=== PATIENT | male | born 1940 | race Hispanic/Latino ===

== ENCOUNTER → 2023-11-10 | Outpatient (CLI) | payer MEDICARE ==
[2023-11-10 12:35] LABS: ALBUMIN 3.2 g/dL (3.5-5.0); BILIRUBIN,TOTAL 0.5 mg/dL (0.2-1.0); POTASSIUM 4.1 mmol/L (3.5-5.1); TOTAL PROTEIN, SERUM 6.9 g/dL (6.0-8.3)
== END | disposition home or self-care (01) ==
LOC: LAB 08:36
PROVIDERS: ATTEND Student in an Organized Health Care Education/Training Program
DX: R07.9 Chest pain, unspecified (principal); E78.5 Hyperlipidemia, unspecified
CPT/HCPCS: 36415; 80053; 80061

== ENCOUNTER → 2023-11-22 | Outpatient (CLI) | payer MEDICARE ==
[~2023-11-22] MED LIST: IOHEXOL 350 MG/ML 100ML INFUS..BTL IV ONE; METOPROLOL TARTRATE 1 MG/ML 5ML VIAL IV ONE
== END | disposition home or self-care (01) ==
LOC: RAH 11-18 08:58
PROVIDERS: ATTEND Student in an Organized Health Care Education/Training Program
DX: I25.10 Atherosclerotic heart disease of native coronary artery without angina pectoris (principal); R07.9 Chest pain, unspecified
CPT/HCPCS: 75574; J3490; Q9967 ×2

== ENCOUNTER → 2024-02-14 | Outpatient (CLI) | payer MEDICARE ==
[~2024-02-14] MED LIST changes: +AEC81 PO; +ATOR40TA71 PO; +BRIM5DRO5 OU; +CHOL200074 PO; +FINA5TAB41 PO; -IOHEXOL 350 MG/ML 100ML INFUS..BTL IV ONE; +KRIL1CAP19 PO; +LATA2.5D14 OU; +LISI20TA24 PO; -METOPROLOL TARTRATE 1 MG/ML 5ML VIAL IV ONE; +SPIR25TA6 PO; +SYSTANE OU; +TERA5CAP4 PO; +TIMOLOL OU
== END | disposition home or self-care (01) ==
LOC: RAH 14:46
PROVIDERS: ATTEND Family Medicine
DX: S49.91XA Unspecified injury of right shoulder and upper arm, initial encounter (principal); M19.011 Primary osteoarthritis, right shoulder; M25.511 Pain in right shoulder; X58.XXXA Exposure to other specified factors, initial encounter; Y93.89 Activity, other specified; Y92.89 Other specified places as the place of occurrence of the external cause; Y99.8 Other external cause status
CPT/HCPCS: 73030

== ENCOUNTER 2024-12-29 17:22 | Emergency (ER) | payer MEDICARE ==
[~2024-12-29] VITALS: Ht 177.8 cm; Wt 73.0 kg
[2024-12-29 17:49] LABS: BASOPHILS # (AUTO) 0.07 K/uL (0.00-0.20); EOSINOPHILS # (AUTO) 0.22 K/uL (0.00-0.70); EOSINOPHILS % (AUTO) 3.2 % (0.0-8.0); HEMATOCRIT 36.9 % (42-54); IMMATURE GRANULOCYTE ABSOLUTE 0.02 K/uL (0-1); LYMPHOCYTES # (AUTO) 1.9 K/uL (1.0-4.8); MEAN CORPUSCULAR HEMOGLOBIN 30.6 pg (27.0-33.0); MEAN CORPUSCULAR VOLUME 87.4 fL (79-99); MONOCYTES # (AUTO) 0.5 K/uL (0.1-1.0); MONOCYTES % (AUTO) 7.1 % (3.0-13.0); NEUTROPHILS # (AUTO) 4.1 K/uL (1.8-7.7); NEUTROPHILS % (AUTO) 60.4 % (40.0-77.0); PLATELET COUNT (AUTO) 117 K/uL (130-400); RED BLOOD CELL COUNT(AUTO) 4.22 MIL/uL (4.50-6.20); RED CELL DISTRIBUTION WIDTH 13.4 % (11.0-15.5); WHITE BLOOD COUNT (AUTO) 6.8 K/uL (4.8-10.8)
[2024-12-29 17:56] LABS: CREATININE 0.9 mg/dL (0.5-1.3); MAGNESIUM 1.5 mg/dL (1.80-2.40); POTASSIUM 3.1 mmol/L (3.5-5.1)
[2024-12-29] MEDS ORDERED: MAGN100T PO (18:22)
--- NOTE | 2024-12-29 18:24 | ERN ---
General Chief Complaint: Abnormal Labs Stated Complaint: HIGH POTASSIUM AND MAGNESIUM Time Seen by MD: 17:33 Time Seen by Midlevel: 17:33 Source: patient History of Present Illness Initial Comments 84-year-old male who presents to the emergency department due to abnormal lab results at PCP's office. Family member reports patient was seen at PCP's office this morning with lab drawn, they received a phone call referring them to the ER due to potassium being 2.7, and low magnesium. Family member states patient takes Lasix once every three days. Patient denies any shortness of breath, chest pain, abdominal pain, vomiting or further associated symptoms. PMHx hypercholesterolemia, CHF, HTN Allergies: Coded Allergies: No Known Drug Allergies (Unverified Allergy, Unknown, 01/07/24) Home Meds Active Scripts Magnesium Glycinate (Mag Glycinate) 100 Mg Tablet, 100 MG PO BID for 3 Days, #6 TAB Prov:CHIDI NDIAYE 12/29/24 Reported Medications Terazosin HCl (Terazosin HCl) 5 Mg Capsule, 5 MG PO HS, CAP 01/07/24 Finasteride (Finasteride) 5 Mg Tablet, 5 MG PO AM, TAB 01/07/24 Krill/Om-3/Dha/Epa/Phospho/Ast (Krill Oil 500 mg Softgel) 500-150-45 Capsule, 1 EACH PO AM, CAP 01/07/24 Spironolactone (Spironolactone) 25 Mg Tablet, 25 MG PO AM, TAB 01/07/24 Aspirin (ASPIRIN 81 MG ECTAB) 81 Mg Ectab, 81 MG PO Q2DAYS, TAB.EC 01/07/24 Cholecalciferol (Vitamin D3) (Vitamin D3) 50 Mcg (2000 Unit) Capsule, 50 MCG PO AM, CAP 01/07/24 [Timolol] No Conflict Check, 1 DROP OU BID 01/07/24 [Systane] No Conflict Check, 1 DROP OU AD PRN for DRYNESS 01/07/24 Brimonidine Tartrate (Brimonidine Tartrate) 0.2 % Drops, 1 DROP OU BID 01/07/24 Lisinopril (Lisinopril) 20 Mg Tablet, 1 TAB PO DAILY 01/07/24 Atorvastatin Calcium (Atorvastatin Calcium) 40 Mg Tablet, 1 TAB PO DAILY 01/07/24 Latanoprost (Latanoprost) 0.005 % Drops, 1 DROP OU HS 01/07/24 Past Medical History Past Medical History: High Cholesterol, Heart Disease, Hypertension Past Surgical History: Appendectomy ROS Dictation Constitutional: Negative for fever,chills, and weight loss Eyes: Negative for injury, pain,redness, and discharge ENT: Negative for injury,pain or swelling Cardiovascular: Negative for chest pain, palpitations, and edema Respiratory: Negative for shortness of breath, cough, and wheezing, Abdomen/GI: Negative for abdominal pain, nausea, vomiting, diarrhea, and constipation Back: Negative for injury and pain : Negative for painful urination, bleeding or discharge MS/Extremity: Negative for injury and deformity Skin: Negative for rash, and discoloration Neuro: Negative for headache, weakness, numbness, tingling, and seizure Psych: Negative for suicide ideation, homicidal ideation, and hallucinations Physical Exam Physical Exam Dictation General: awake, alert, no acute distress Head/Face: Normocephalic, atraumatic Eyes: PERRL, EOMI, normal conjunctiva ENT: oral cavity clear, oral mucosa moist Neck: Supple, normal range of motion Cardiovascular: RRR, normal S1/S2 Respiratory: CTAB, no respiratory distress, no rales or wheezes Abdomen: Soft, non-tender, non-distended, no guarding or rebound. Skin: Warm, dry, normal turgor, no rash MS/Extremity: Pulses equal, no cyanosis, neurovascular intact, FROM Neuro: COAx4, GCS 15, no neurological deficits, normal gait Psych: Normal behavior, mood, and affect normal Results Laboratory and Microbiology Lab and Micro Result Laboratory Tests Test 12/29/24 17:42 White Blood Count 6.8 K/uL (4.8-10.8) Red Blood Count 4.22 MIL/uL (4.50-6.20) L Hemoglobin 12.9 g/dL (14.0-18.0) L Hematocrit 36.9 % (42-54) L Mean Corpuscular Volume 87.4 fL (79-99) Mean Corpuscular Hemoglobin 30.6 pg (27.0-33.0) Mean Corpuscular Hemoglobin Concent 35.0 g/dL (32.0-36.0) Red Cell Distribution Width 13.4 % (11.0-15.5) Platelet Count 117 K/uL (130-400) L Mean Platelet Volume 12.5 fL (7.5-10.5) H Immature Granulocyte % (Auto) 0.3 % (0-1) Neutrophils (%) (Auto) 60.4 % (40.0-77.0) Lymphocytes (%) (Auto) 28.0 % (21.0-51.0) Monocytes (%) (Auto) 7.1 % (3.0-13.0) Eosinophils (%) (Auto) 3.2 % (0.0-8.0) Basophils (%) (Auto) 1.0 % (0.0-5.0) Neutrophils # (Auto) 4.1 K/uL (1.8-7.7) Lymphocytes # (Auto) 1.9 K/uL (1.0-4.8) Monocytes # (Auto) 0.5 K/uL (0.1-1.0) Eosinophils # (Auto) 0.22 K/uL (0.00-0.70) Basophils # (Auto) 0.07 K/uL (0.00-0.20) Absolute Immature Granulocyte (auto 0.02 K/uL (0-1) Nucleated Red Blood Cells 0.0 % (0.0-0.19) Sodium Level 139 mmol/L (136-145) Potassium Level 3.1 mmol/L (3.5-5.1) L Chloride Level 103 mmol/L (101-111) Carbon Dioxide Level 32 mmol/L (21-32) Blood Urea Nitrogen 18 mg/dL (7-18) Creatinine 0.9 mg/dL (0.5-1.3) Glomerular Filtration Rate Calc 85 mL/min (>90) Random Glucose 88 mg/dL (70-105) Total Calcium 9.0 mg/dL (8.5-10.1) Magnesium Level 1.50 mg/dL (1.80-2.40) L Labs Reviewed?: Yes MDM MDM: Differential diagnosis: Electrolyte abnormality, hypokalemia, hypomagnesemia Rationale: 84-year-old male who presents to the emergency department due to abnormal lab results at PCP's office. Family member reports patient was seen at PCP's office this morning with lab drawn, they received a phone call referring them to the ER due to potassium being 2.7, and low magnesium. Family member states patient takes Lasix once every three days. Patient denies any shortness of breath, chest pain, abdominal pain, vomiting or further associated symptoms. PMHx hypercholesterolemia, CHF, HTN Labs obtained indicating hypokalemia with potassium of 3.1, and magnesium of 1.5. Patient was administered magnesium and potassium in the ED. On re-ex amination patient continues to have no symptoms, in no acute distress. Family member and patient were educated on findings and diagnosis. Potassium was previously prescribed at PCP's office therefore patient was instructed to continue taking the potassium and magnesium was prescribed. Advised to follow up with PCP. Return to the emergency department if any worsening symptoms. P atient verbalized understanding. Patient stable for discharge. There are no social concerns with this patient. I independently interpreted the test that were performed, results were reviewed by me and considered findings on radiology if ordered. Medical management and examination interpretation discussions were had by me with other qualified healthcare professionals as indicated for the patient's care. ED Course Orders Procedure Category Date Status Time Cbc With Differential LAB 12/29/24 Complete 17:23 Basic Metabolic Panel LAB 12/29/24 Complete 17:23 Magnesium LAB 12/29/24 Complete 17:23 Potassium Bicarb/Cit PHA 12/29/24 Complete Ac 25meq (K-Lyte Ta 18:30 Magnesium Chloride PHA 12/29/24 Complete (Slow-Mag) 18:30 Current Medications Medications (Trade) Dose Ordered Sig/Сергей Route PRN Reason Start Time Stop Time Status Last Admin Dose Admin Magnesium Chloride (Slow-Mag) 64 mg ONCE ONCE PO 12/29/24 18:30 12/29/24 18:31 DC 12/29/24 19:38 Potassium Bicarbonate (K-Lyte Tablet Eff 25 Meq Tablet.eff) 50 meq ONCE ONCE PO 12/29/24 18:30 12/29/24 18:31 DC 12/29/24 19:36 Vital Signs Date Time Temp Pulse Resp B/P (MAP) Pulse Ox O2 Delivery O2 Flow Rate FiO2 12/29/24 20:01 97.5 82 18 141/65 97 Room Air* 0 21 12/29/24 17:31 97.5 82 18 147/64 97 Room Air 0 DX & DISP Disposition: Discharge Departure Impression: Primary Impression: Hypokalemia Additional Impression: Hypomagnesemia Condition: Stable Scripts Magnesium Glycinate (Mag Glycinate) 100 Mg Tablet 100 MG PO BID for 3 Days, #6 TAB Prov: CHIDI NDIAYE 12/29/24 Additional Instructions: Discharge home. Rest. Follow up with primary care DrGreyson in 24 hours. Return to the ER for any acute changes or worsening symptoms. If any medications were prescribed take as directed. Okay to continue home medications unless otherwise discussed during your visit in the emergency room today. Patient was also advised to follow-up with primary care physician in 1 to 2 days for continued monitoring. Referrals: JOY TRAN M.D. (PCP) I performed the substantive portion of the visit. I have reviewed and personally made and approve the management plan that is documented in the notes by myself or the BETZY. I acknowledge full responsibility for the patient's management plan. CHIDI NDIAYE Dec 29, 2024 18:24 CONSTANTINE JONAS DO Dec 30, 2024 07:03
--- NOTE | 2024-12-29 19:10 | NUR ---
CALLED NO ANSWER
--- NOTE | 2024-12-29 19:13 | NUR ---
LOCATED IN MAIN ER
--- NOTE | 2024-12-29 19:32 | NUR ---
ASSUMED CARE AT THIS TIME PT WAS ASSIGNED TO FAST TRACK
[2024-12-29] MEDS: PoTASSium BIcarbonate/CIT AC 25 MEQ TABLET.EFF PO ONE (19:36)
[2024-12-29] MEDS: MAGNESIUM CHLORIDE 64 MG TABLET.SA PO ONE (19:38)
[2024-12-29 20:01] VITALS: BP 141/65; PULSE 82; RESP 18; TEMP 97.5; O2SAT 97
== END 2024-12-29 20:03 | disposition home or self-care (01) ==
LOC: EDH 17:22
DX: E87.6 Hypokalemia (principal); E83.42 Hypomagnesemia; I11.9 Hypertensive heart disease without heart failure; E78.00 Pure hypercholesterolemia, unspecified; Z79.899 Other long term (current) drug therapy; Z90.49 Acquired absence of other specified parts of digestive tract
CPT/HCPCS: 36415; 80048; 83735; 85025; 99283

== ENCOUNTER → 2025-01-11 | Outpatient (CLI) | payer MEDICARE ==
[~2025-01-11] MED LIST changes: +MAGN100T PO
[2025-01-11 16:35] LABS: ALBUMIN 3.4 g/dL (3.5-5.0); BILIRUBIN,TOTAL 0.8 mg/dL (0.2-1.0); CREATININE 0.9 mg/dL (0.5-1.3); POTASSIUM 4.7 mmol/L (3.5-5.1); TOTAL PROTEIN, SERUM 6.5 g/dL (6.0-8.3)
== END | disposition home or self-care (01) ==
LOC: LAB 12:48
PROVIDERS: ATTEND Student in an Organized Health Care Education/Training Program
DX: E87.6 Hypokalemia (principal)
CPT/HCPCS: 36415; 80053